=== PATIENT | male | born 1995 | race Caucasian/White ===

== ENCOUNTER → 2016-05-11 | Day surgery (SDC) | payer OTHER ==
[~2016-05-11] VITALS: Ht 185.4 cm; Wt 78.9 kg
[~2016-05-11] MED LIST: BUPIVACAINE HCL 0.5% 10 ML VIAL As Ordered ONE; BUPIVACAINE HCL 0.5% 30 ML VIAL XX ONE; HYDROmorphone HCL 1 MG/ML SYRINGE (J1170) As Ordered ONE; LIDOCAINE 2% INJ 100 MG/5 ML SDV (FOR ANES.) As Ordered ONE; LR 1,000 ML IV SCH; METOCLOPRAMIDE INJ 10MG/2ML VIAL (J2765) As Ordered ONE; MIDAZOLAM INJ 2 MG/2 ML VIAL (J2250) As Ordered ONE; ONDANSETRON 4MG/2ML VIAL (J2405) As Ordered ONE; ONDANSETRON 4MG/2ML VIAL (J2405) IV PRN; PERCOCET 5MG/325MG TAB As Ordered ONE; PROPOFOL 200 MG/20 ML VIAL As Ordered ONE; dexameTHASONE 4 MG/ML 1ML VIAL (J1100) As Ordered ONE; fentaNYL 100 MCG/2 ML INJECTION (J3010) As Ordered ONE; fentaNYL 100 MCG/2 ML INJECTION (J3010) IV PRN
[2016-05-11] MEDS: HYDROmorphone HCL 1 MG/ML SYRINGE (J1170) IV PRN ×3 (10:31→10:55)
[2016-05-11] MEDS: PERCOCET 5MG/325MG TAB PO PRN ×2 (10:52→11:23)
[2016-05-11 14:30] VITALS: BP 119/57
--- NOTE | 2016-05-16 13:22 | RO ---
DATE OF PROCEDURE: 05/11/2016 PREPROCEDURE DIAGNOSIS: Chronic tonsillitis. POSTPROCEDURE DIAGNOSIS: Chronic tonsillitis. PROCEDURE: Tonsillectomy. SURGEON: Sunil Kong MD PATTERNATOR: ANESTHESIA: INDICATION: This is a 20-year-old who has had recurrent bouts of acute tonsillitis, pharyngitis. DESCRIPTION OF PROCEDURE: The patient was placed in the supine position. General endotracheal anesthesia was administered. The patient placed in Trendelenburg position. Then a Madie-Sean gag was inserted. First, the right tonsil was grasped with an Allis clamp and retracted out of its muscular fossa. Using a cutting cautery, incision was made on the anterior pillar 3 mm from its edge and the capsule of the tonsil was then identified. Using a combination of cautery and blunt dissection, the tonsil was dissected medially out of its muscular fossa working superiorly down into the space between the constrictor muscle and the tonsil capsule. The tonsil was rolled medially out of its fossa working inferiorly and preserving the posterior pillar in its entirety. Once the tonsil was suspended only at the inferior pole, coagulation current was used to amputate tissue. No significant bleeding was encountered in this dissection. The left tonsil was removed in a similar fashion. After completing surgery, 0.50% Marcaine was injected into the surgical site. The gag was released at 3 minutes. Reinspection showed no active bleeding. The pharynx was irrigated with saline solution. The patient was then awakened, extubated and sent to recovery in satisfactory condition. At the completion of surgery, the gag was released. THe patient was then awakened, extubated, and sent to the recovery room in satisfactory condition. He will be discharged on Percocet for pain to be alternated with Motrin 800 mg three times a day.
== END | disposition home or self-care (01) ==
LOC: M SDC 08:36
PROVIDERS: ATTEND Specialist
DX: J35.01 Chronic tonsillitis (principal); R06.83 Snoring
CPT/HCPCS: 42826; 88302; J1100; J1170; J2250; J2405; J2765; J3010

== ENCOUNTER 2017-04-09 20:49 | Emergency (ER) | payer OTHER ==
[2017-04-09] MEDS: CYCLOBENZAPRINE 10 MG TAB PO (21:40)
[2017-04-09] MEDS: IBUPROFEN 600 MG TAB PO (21:40)
== END 2017-04-09 22:45 | disposition home or self-care (01) ==
LOC: M ED 20:49
DX: S39.012A Strain of muscle, fascia and tendon of lower back, initial encounter (principal); W00.9XXA Unspecified fall due to ice and snow, initial encounter; Y92.89 Other specified places as the place of occurrence of the external cause
CPT/HCPCS: 99283